=== PATIENT | female | born 1960 | race Caucasian/White ===

== ENCOUNTER → 2017-03-02 | Outpatient (CLI) | payer OTHER, SELFPAY ==
[~2017-03-02] MED LIST: ASPRIMOX 325 M325 MG; CELEXA 10 MG TA10 M1; COREG CR20 MG PO; HYDROCODON-ACE1 EAC7; IBUPROFEN 600600 M1 PO; IBUPROFEN 800800 MG PO; LORTAB 5 MG/5001 TAB PO; MELOXICAM7.5 MG PO; VICODIN 5-5001 EACH PO; XANAX 0.25 MG0.25 MG; XANAX 0.5 MG0.5 MG PO; ZOFRAN4 MG PO
== END ==
LOC: RAD 11:33
DX: Z12.31 Encounter for screening mammogram for malignant neoplasm of breast (principal)